=== PATIENT | male | born 1975 | race African-American/Black ===

== ENCOUNTER 2020-06-02 01:32 | Emergency (ER) | payer OTHER ==
[2020-06-02 01:46] VITALS: BP 133/75
[2020-06-02] MEDS ORDERED: IBUPROFEN 600 MG TABLET PO STA (02:09)
--- NOTE | 2020-06-02 02:48 | ED Physician Documentation ---
History of Present Illness - Stated complaint Stated Complaint: FALL/BACK PX - Chief complaint Chief Complaint: Trauma Ch/Bk - History obtained from History obtained from: Patient - Additonal information Additional information: Patient comes emergency department chief complaint of fall from airplane wing at work. Patient states he is in the [place] and was working on the wing of an airplane that was approximately 8-10 off the feet off the ground. He did not realize that somebody had put away the latter that is normally attached to the area where he comes down. Patient states he was in a hurry and stepped down confidently to descend the ladder, only to find that the ladder was not there. He fell to the ground and states that he landed on both feet and then immediately stumbled back to land on his sacral area. He did not feel an immediate pain, he states, but as the next hour and a half for on, he began to realize that his low back/posterior pelvis was becoming more more sore. Patient states he walked in and has not had trouble ambulating. He was not hurt in any other way. No loss of bowel or bladder control. No heel pain. No spinal pain. He indicates that the pain is off to the left side of the spine at the level of the pelvis. No other complaints at this time. Review of Systems Ten Systems: 10 systems reviewed and negative Constitutional: reports: Reviewed and negative Eyes: reports: Reviewed and negative Ears: reports: Reviewed and negative Nose: reports: Reviewed and negative Throat: reports: Reviewed and negative Cardiac: reports: Reviewed and negative Respiratory: reports: Reviewed and negative GI: reports: Reviewed and negative : reports: Reviewed and negative Skin: reports: Reviewed and negative Musculoskeletal: reports: Back pain Neurologic: reports: Reviewed and negative Psychiatric: reports: Reviewed and negative Endocrine: reports: Reviewed and negative Immunocompromised: reports: Reviewed and negative PD PAST MEDICAL HISTORY - Past Medical History Past Medical History: No Cardiovascular: None Respiratory: None Neuro: None Endocrine/Autoimmune: None GI: None : None HEENT: None Psych: None Musculoskeletal: None Derm: None - Past Surgical History Past Surgical History: No - Allergies Allergies/Adverse Reactions: Allergies Allergy/AdvReac Type Severity Reaction Status Date / Time No Known Drug Allergies Allergy Verified 06/02/20 01:46 - Social History Does the pt smoke?: No Smoking Status: Never smoker Does the pt drink ETOH?: No Does the pt have substance abuse?: No - Immunizations Immunizations are current?: Yes - POLST Patient has POLST: No PD ED PE NORMAL - Vitals Vital signs reviewed: Yes - General General: Alert and oriented X 3, No acute distress, Well developed/nourished - HEENT HEENT: Atraumatic, PERRL, EOMI, Moist mucous membranes - Neck Neck: Supple, no meningeal sign - Cardiac Cardiac: RRR, No murmur, Strong equal pulses - Respiratory Respiratory: No respiratory distress, Clear bilaterally - Abdomen Abdomen: Soft, Non tender, Non distended - Back Back: No CVA TTP, No spinal TTP, Other (Tenderness over sacroiliac joint on the left greater than right. 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, No motor deficit, No sensory deficit, Normal speech - Psych Psych: Normal mood, Normal affect Results - Vitals Vitals: Vital Signs - 24 hr 06/02/20 06/02/20 06/02/20 01:43 02:28 02:51 Temperature 36.2 C L Heart Rate 55 L Respiratory 16 16 15 Rate Blood Pressure 133/75 H O2 Saturation 99 Oxygen O2 Source Room air - Rads (name of study) pelvis XR Radiology: Final report received, EMP read indepedently, See rad report sacral XR Radiology: Final report received, EMP read indepedently, See rad report PD MEDICAL DECISION MAKING - ED course Complexity details: reviewed results, re-evaluated patient, considered differential, d/w patient ED course: The patient was well-appearing overall and I felt it was most likely that he had strained/sprained the ligamentous connections at the SI joint. X-ray series was performed of the sacral spine as well as the pelvis, and no fractures or dislocations were found. Patient was given a dose of ibuprofen in the emergency department. We have discussed home management of the symptoms, as well as the usual indications for return. Departure - Departure Disposition: 01 Home, Self Care Clinical Impression: Fall from height of greater than 3 feet Sprain and strain of sacrum Qualifiers: Encounter type: initial encounter Qualified Code(s): S33.8XXA - Sprain of other parts of lumbar spine and pelvis, initial encounter Condition: Stable Instructions: Sacroiliac Strain, Sacroiliac Strain Exercise, ED Sprain Strain Lumbar Comments: The x-ray series of your pelvis and sacral spine look good. There are is no compromise of the bone, nor is there widening of the joint spaces to indicate severe ligamentous tear. Most likely, you have sustained a strain and sprain to the ligaments connecting the sacral spine to the pelvis. This is not an uncommon injury for a fall such as yours. You do not have any tenderness at any level of your spine, and this makes the likelihood of injury anywhere else in your spine extremely unlikely. You may take ibuprofen and Tylenol to help with the pain. Please avoid heavy lifting until your back is feeling a little better.
--- NOTE | 2020-06-02 09:24 | XRAY Report ---
PROCEDURE: Pelvis 1 View INDICATIONS: fall/pain TECHNIQUE: 1 view of the pelvis acquired. COMPARISON: Concurrent study of the sacrum. FINDINGS: Bones: No fractures or dislocations. There is mild superior joint space narrowing in the left hip. No suspicious bony lesions. Soft tissues: Visualized bowel gas pattern is normal. There are corticated calcifications lateral to the bilateral iliac bones and adjacent to the left superior acetabular rim. Findings are nonspecific and may reflect dystrophic calcifications or sequelae of prior soft tissue injuries. IMPRESSION: 1. No acute fracture or dislocation. Reviewed by: Joseluis Zuniga MD on 06/02/2020 9:23 AM PDT Approved by: Joseluis Zuniga MD on 06/02/2020 9:23 AM PDT Station ID: [id number]
--- NOTE | 2020-06-02 09:30 | XRAY Report ---
PROCEDURE: Sacrum/Coccyx INDICATIONS: fall/pain TECHNIQUE: 3 views of the sacrum and coccyx acquired. COMPARISON: Concurrent study of the pelvis. FINDINGS: Bones: No fractures or dislocations. There is mild grade 1 anterolisthesis at L5-S1 with suspected pars defects. Soft tissues: Visualized bowel gas pattern is normal. There are bilateral corticated linear calcifi cations lateral to the iliac bones which are nonspecific but suggestive of dystrophic calcifications. There is also a small corticated ossicle adjacent to the left superior acetabular rim suggestive of an os acetabulum or sequelae of a prior avulsion injury. IMPRESSION: 1. No acute fracture or dislocation. 2. Suspected pars defects at L5 with associated grade 1 anterolisthesis. 2. Small ossicle adjacent to the left superior acetabular rim may represent an os acetabulum or seque lae of a prior avulsion injury. Reviewed by: Joseluis Zuniga MD on 06/02/2020 9:29 AM PDT Approved by: Joseluis Zuniga MD on 06/02/2020 9:29 AM PDT Station ID: [id number]
== END 2020-06-02 03:00 | disposition home or self-care (01) ==
LOC: ED 01:32
DX: S33.8XXA Sprain of other parts of lumbar spine and pelvis, initial encounter (principal); W17.89XA Other fall from one level to another, initial encounter; Y92.139 Unspecified place military base as the place of occurrence of the external cause; Y99.1 Military activity
CPT/HCPCS: 72170; 72220; 99282; 99283; A9270